=== PATIENT | female | born 1955 | race Caucasian/White ===

== ENCOUNTER 2016-08-04 08:25 | Outpatient (CLI) | END 2016-08-04 08:26 | disposition home or self-care (01) | LOC: LAB 08:25 | PROVIDERS: ATTEND Internal Medicine | DX: E11.9 Type 2 diabetes mellitus without complications (principal); E78.5 Hyperlipidemia, unspecified; I10 Essential (primary) hypertension | CPT/HCPCS: 36415; 80061; 82306; 83036 ==

== ENCOUNTER 2016-09-09 16:45 | Outpatient (CLI) | END 2016-09-09 16:46 | disposition home or self-care (01) | LOC: RAD 16:45 → CAR 16:46 | PROVIDERS: ATTEND Nurse Practitioner Family | DX: I49.9 Cardiac arrhythmia, unspecified (principal) | CPT/HCPCS: 93005; 93010 ==

== ENCOUNTER 2016-09-16 06:33 | Outpatient (CLI) ==
--- NOTE | 2016-09-16 11:19 | ECHO2D ---
Date of Exam: 09/16/16 Ordering Physician: CHELO YOUNG Reason for Echo: CHEST SORENESS, PALPITATIONS, FATIGUE M-Mode Normal Adult Results LV Dimensions Normal Adult Results AoV Opening excursions >1.6 >1.6 LVEDD-base- 3.5-5.8 4.1 Ao root dimensions 2.0-3.7 3.1 LVESD-base- 3.1-4.6 L. Atrium dimensions 1.9-3.8 3.6 Post. Wall thickness 0.8-1.1 1.2 IV septum (thickness) 0.7-1.2 1.1 Post. Wall excursion 0.72-1.3 NORMAL Septal motion NORMAL Systolic motion R. Ventricular cavity 1.5-2.0 NORMAL LVEF 60% 52% Paradoxical septal wall motion NORMAL 2-D : 2-D M Mode Echocardiogram was performed using apical four chamber and left parasternal long and short axis views. Mitral, tricuspid and aortic valves appear to be normal. Contractility of the left ventricle seems to be normal, so is the cavity size. Left atrial cavity size and aortic root appear to be normal. There is no pericardial effusion. There is no thrombus noted in the left ventricular or left aortic cavity. No mitral valve prolapse noted. M-MODE: MV: NORMAL AV: NORMAL TV: NORMAL PV: CHAMBER SIZE: NORMAL WALL MOTION: NORMAL PERICARDIUM: NORMAL INTERPRETATION: 1. NORMAL 2 "D" "M" MODE ECHO MTDD
== END 2016-09-16 06:34 | disposition home or self-care (01) ==
LOC: CAR 06:33
PROVIDERS: ATTEND Internal Medicine
DX: R07.89 Other chest pain (principal); R00.2 Palpitations; R53.83 Other fatigue

== ENCOUNTER 2016-09-17 06:47 | Outpatient (CLI) | payer OTHER ==
--- NOTE | 2016-09-17 10:27 | STRESSECHO ---
Date of Test: 09/17/16 Reason for Exam: CHEST SORENESS, PALPITATIONS, FATIGUE Ordering Physician: CHELO YOUNG Current Medications: LIPITOR, ASA, SYNTHROID, FISH OIL, ZIAC, FENOFIBRATE, SKELAXIN, TRAMADOL, ELAVIL, VOLTAREN Physical Findings: S1, S2, NO S3 Resting EKG: SINUS RHYTHM/NO ACUTE CHANGES Target Heart Rate: 135/159 STAGE MPH/GRADE HEART RATE BPM BLOOD PRESSURE mmhg RHYTHM S-T SEGMENT +/- UP DOWN SYMPTOMS,COMMENTS At Rest 80 116/72 SR X NONE 1 1.7/10% 118 130/80 SR X NONE 2 2.5/12% 3 3.4/14% 4 4.2/16% 5 5.0/18% Immediately after 138 138/82 SR X FATIGUE Durations of Exercise: 4:44 Maximum Heart Rate Reached: 138 Reason for Termination: FATIGUE INTERPRETATION: 95% OXYGEN SATURATION WITH EXERCISE ON ROOM AIR METS 7.0 1. NO EVIDENCE OF ISCHEMIA BY ST-T WAVE 2. NO CHEST PAIN OR CHEST DISCOMFORT 3. BLOOD PRESSURE RESPONSE NORMAL 4. COUPLE OF PVC'S POST EXERCISE NORMAL LEFT VENTRICULAR CONTRACTILITY--RESTING AND POST EXERCISE MTDD
--- NOTE | 2016-09-17 10:30 | ECHOSTRESS ---
Date of Exam: 09/17/16 Ordering Physician: CHELO YOUNG Reason for Echo: CHEST SORENESS, FATIGUE, PALPITATIONS, STRESS TEST--NO ISCHEMIA Auscultation: S1, S2 M-Mode Normal Adult Results LV Dimensions Normal Adult Results AoV Opening excursions >1.6 LVEDD-base- 3.5-5.8 Ao root dimensions 2.0-3.7 LVESD-base- 3.1-4.6 L. Atrium dimensions 1.9-3.8 Post. Wall thickness 0.8-1.1 IV septum (thickness) 0.7-1.2 Post. Wall excursion 0.72-1.3 Septal motion Systolic motion R. Ventricular cavity 1.5-2.0 LVEF 60% Paradoxical septal wall motion 2-D: NORMAL LEFT VENTRICULAR CONTRACTILITY--RESTING AND POST EXERCISE M-MODE: MV: AV: TV: PV: CHAMBER SIZE: WALL MOTION: NORMAL LEFT VENTRICULAR CONTRACTILITY--RESTING AND POST EXERCISE PERICARDIUM: INTERPRETATION: 1. NORMAL LEFT VENTRICULAR CONTRACTILITY--RESTING AND POST EXERCISE MTDD
--- NOTE | 2016-09-20 11:38 | HOLTER ---
PATIENT INFORMATION AND COMMENTS Indications: CHEST SORENESS, PALPITATIONS __ Patient Medications: LIPITOR, ASA, SYNTHROID, ZIAC, FENOFIBRATE, SKELAXIN, TRAMADOL, ELEVIL, VOLTAREN __ Pre-procedure Summary: Protocol: Standard Heart Rate Started: 09/17/16750 Minimum: 66 BPM Weight: 149 LBS Ended: 09/18/16750 Maximum: 153 BPM Height: 64" Duration: 24 HOURS Average: 87 BPM _ INTERPRETATIONS/OBSERVATIONS: 1. BASIC RHYTHM: SINUS, RATE 65/MINUTE TO 130/MINUTE, AVERAGE 85/MINUTE 2. INFREQUENT ISOLATED PVC'S 3. RARE PAC'S 4. FOUR RUNS OF SVT--CONSISTING OF [address]-T WAVE CHANGES FROM BASELINE 6. MAYBE SOME CORRELATION WITH SYMPTOMS OF "PALPITATIONS" MTDD
== END 2016-09-17 06:48 | disposition home or self-care (01) ==
LOC: CAR 06:47
PROVIDERS: ATTEND Internal Medicine
DX: R07.89 Other chest pain (principal); R00.2 Palpitations; R53.83 Other fatigue
CPT/HCPCS: 93224

== ENCOUNTER 2016-11-11 11:24 | Outpatient (CLI) ==
[2016-11-11 13:53] LABS: BASOPHILS % (AUTO) 0.6 % (0.0-3.0); EOSINOPHILS # (AUTO) 0.1 K/ul (0.0-0.7); EOSINOPHILS % (AUTO) 1.3 % (0.0-7.0); HEMATOCRIT 38.1 % (37.0-47.0); HEMOGLOBIN 12.5 g/dl (12.0-16.0); IMMATURE GRANULOCYTE % (AUTO) 0.3 % (0.0-5.0); LYMPHOCYTES # (AUTO) 1.8 K/uL (0.60-3.4); LYMPHOCYTES % (AUTO) 28.6 (10.0-50.0); MEAN CORPUSCULAR HEMOGLOBIN 30.4 pg (27.0-31.0); MEAN CORPUSCULAR HGB CONC 32.8 (31.8-35.4); MEAN CORPUSCULAR VOLUME 92.7 fl (81.0-99.0); MONOCYTES # (AUTO) 0.5 K/uL (0.4-2.0); MONOCYTES % (AUTO) 8.5 (0-10); NEUTROPHILS # (AUTO) 3.8 K/ul (2.0-6.9); NEUTROPHILS % (AUTO) 60.7; PLATELET COUNT 256 10^3/uL (140-440); RED BLOOD COUNT 4.11 10^6/ul (4.20-5.40); WHITE BLOOD COUNT 6.23 K/ul (4.6-10.2)
[2016-11-11 15:01] LABS: ALBUMIN 4.2 g/dL (3.4-5.0); ALBUMIN/GLOBULIN RATIO 1.31; ANION GAP 16.6; BILIRUBIN,TOTAL 0.47 mg/dL (0.00-1.20); BUN/CREATININE RATIO 25.3; CALCIUM 9.5 mg/dL (8.2-10.2); CREATININE 0.83 mg/dL (0.60-1.30); POTASSIUM 4.6 mmol/L (3.5-5.10); TOTAL PROTEIN 7.4 g/dL (5.8-8.1)
== END 2016-11-11 11:25 | disposition home or self-care (01) ==
LOC: LAB 11:24
PROVIDERS: ATTEND Internal Medicine
DX: M15.0 Primary generalized (osteo)arthritis (principal); Z79.899 Other long term (current) drug therapy
CPT/HCPCS: 36415; 80053; 85025

== ENCOUNTER 2017-05-19 15:36 | Outpatient (RCR) ==
--- NOTE | 2017-05-19 17:03 | RS.OPPTDN ---
Subjective Date of Note: 05/19/17 Visit #: 4 Date of Evaluation: 05/05/17 Payer Source: Insurance Treatment Diagnosis: neck pain, left UE pain Current Subjective/complaints:: Neck is the same, left shoulder may be a little better. She is performing her exercises at home and is very receptive to home instruction or advice. Pain Assessment - Pain Description Pain Location: neck and left UE Current Pain Intensity: 5/10 - Treatment Modality: Ultrasound Parameters/Method Applied: 1.5 w/cm2 cont X 9 mins to left shoulder over middle and anterior deltoid region. while receiving heat to cervical spine. - Heat/Cryotherapy Treatment: Hot Pack (X 15 mins to cervical spine , prior to cervical traction) - Traction Treatment Method: Mechanical, Intermittent, Cervical Patient Position: Supine Amount of Force Applied: 26-27 lbs. Hold Time: 35 sec Rest Time: 5 sec Duration of treatment: 20 mins Interventions - Exercise/Activities/Manual Therapy Exercises/Activities: Patient given a red theraband for resisted shoulder ER ( bilaterally) in very short ranges to strengthen the scapula and humeral depressors. Reviewed HEP and encouraged her to let pain be her guide. X 7 mins Manual Therapy: None today HOME EXERCISE PROGRAM: pendulum, RTC series, and cervical stretch for lateral flexion. Isometric cervical retraction. - Charges Total Direct Minutes: 16 mins Total Treatment Time: 36 mins Procedures billed for this date of service:: Hp, US, mechanical traction Assessment: Patient reports no change in neck or scapular pain. Feels the pendulum ex may be helping the left shoulder and is very receptive to progress with resisted ER. She does not demonstrate to be responding to manual therapy or mechanical traction. She is able to continue with exercises on her own and even requests to do so. Patient Education: Education of diagnosis, Home Exercise Program, Activity Modification, Education of Plan of Care Patient demonstrates compliance with HEP?: Yes Short Term Goals Goal #1: Patient independent and compliant with HEP. Goal to be met by: 05/20/17 Progress towards Goal:: Met Goal #2: Left radiating symptoms localized to the shoulder. Goal to be met by: 05/20/17 Progress towards Goal:: Not Met Goal #3: Muscle tone of left upper traps decreased to minimal. Goal to be met by: 05/20/17 Progress towards Goal:: Not Met Snf Goals Goal #1: Pt knows HEP and to continue ex's to maintain functional level at D/C. Goal to be met by: 06/25/17 Progress towards goal: Met Goal #2: Score on Neck Disability Index improved to 20. Goal to be met by: 06/25/17 Progress towards goal: Not Met Goal #3: Pt able to use left UE for reaching/ADL's with min. discomfort. Goal to be met by: 06/25/17 Progress towards goal: Not Met Goal #4: Pt able to sleep 6 hours without interruption from neck/left UE pain. Goal to be met by: 06/25/17 Progress towards goal: Not Met Plan PLAN OF CARE EXPIRES ON:: 06/25/17 ORDER # VISITS AND/OR THROUGH DATE: 06/25/17 PLAN: Plan for Discharge (Patient expresses desire to continue shoulder exercises on her own) Comments:: No further treatment to the neck justified at this time. She has been performing postural exercises for some time now, she does not respond to manual therapy or mechanical traction, and she feels she can continue exercises on her own.
== END 2017-06-16 ==
PROVIDERS: ATTEND Nurse Practitioner
DX: M50.30 Other cervical disc degeneration, unspecified cervical region (principal); M48.02 Spinal stenosis, cervical region; M25.512 Pain in left shoulder; G89.29 Other chronic pain

== ENCOUNTER 2018-04-06 09:32 | Outpatient (CLI) | END 2018-04-06 09:33 | disposition home or self-care (01) | LOC: LAB 09:32 | PROVIDERS: ATTEND Internal Medicine | DX: R94.5 Abnormal results of liver function studies (principal) | CPT/HCPCS: 36415; 80053; 85025 ==